=== PATIENT | female | born 1995 | race Caucasian/White ===

== ENCOUNTER 2020-05-17 13:18 | Observation (INO) | payer BC ==
[~2020-05-17 13:18] MED LIST: Iopamidol 370 76% 100 ML VIAL ONE; Iopamidol 370 76% 50 ML VIAL FS ONE
[2020-05-17] MEDS ORDERED: Ondansetron PF 4 MG/2 ML Vial ONE (13:54)
[2020-05-17] MEDS ORDERED: Morphine 4 MG/ML VIAL ONE (13:54)
[2020-05-17 14:02] LABS: #Eosinphils 0.1 thou/uL (0.0-0.7); #Lymphocytes 1.1 thou/uL (1.20-3.40); #Monocytes 0.3 thou/uL (0.11-0.59); #Neutrophils 6.5 thou/uL (1.40-6.50); %Basophils 0.1 % (0.0-1.0); %Eosinophils 1.4 % (0.0-10.0); %Lymphocytes 13.8 % (21.0-51.0); %Monocytes 3.6 % (0.0-10.0); %Neutrophils 81.1 % (42.0-75.0); Hemoglobin 15.5 g/dL (12.0-16.0); Mean Corpuscular HGB CONC 34.4 g/dL (32.0-36.0); Mean Corpuscular Hemoglobin 30.9 pg (27.0-31.0); Mean Corpuscular Volume 89.8 fL (78.0-98.0); Mean Platelet Volume 7.7 fL (7.4-10.4); Platelet Count 222 thou/uL (130-400); RBC Distribution Width 11.4 % (11.5-14.5); Red Blood Cell (RBC) Count 5.03 mill/uL (4.20-5.40)
[2020-05-17 14:11] LABS: BHCG - Serum Negative (NEGATIVE); Pregs Control Background? CLEAR/WHITE (CLR/WHITE); Pregs Control Bar Appear? YES (CONTROL BAR)
[2020-05-17 14:21] LABS: ALT (SGPT) 11 U/L (8-55); AST (SGOT) 19 U/L (5-34); Albumin 4.3 g/dL (3.5-5.0); Alkaline Phosphatase 56 U/L (40-110); Anion Gap 14 mmol/L (10-20); BUN (Urea Nitrogen) 12 mg/dL (7.0-18.7); Bilirubin, Total 0.7 mg/dL (0.2-1.2); Calc. Creatinine Clearance 0 mL/min (70-130); Calcium 9.4 mg/dL (7.8-10.44); Carbon Dioxide 26 mmol/L (22-29); Chloride 103 mmol/L (98-107); Estimated GFR-MDRD 89; Globulin 3.5 g/dL (2.4-3.5); Glucose 98 mg/dL (70-105); Lipase 27 U/L (8-78); Potassium 3.8 mmol/L (3.5-5.1); Protein, Total 7.8 g/dL (6.0-8.3); Sodium 139 mmol/L (136-145)
[2020-05-17 16:06] LABS: Bilirubin Negative (Negative); Blood, Urine Negative (Negative); Clarity Clear (Clear); Glucose, Urine (Dipstick) Normal (Negative); Ketone, Urine Negative (Negative); Leukocyte Negative Leu/uL (Negative); Nitrite Negative (Negative); Protein, Urine (Dipstick) Negative (Neg-Trace); Urobilinogen Normal mg/dL (Less than 2); pH, Urine 7.5 (5.0-9.0)
--- NOTE | 2020-05-17 16:26 | CT ---
CT ABDOMEN AND PELVIS WITH IV CONTRAST 05/17/2020 CLINICAL INFORMATION: Right lower quadrant abdominal pain for last 2 days. Pain now radiating to left lower quadrant. Nause a and loose stools COMPARISON: None. Technique: Multiple contiguous axial CT images are obtained through the abdomen and pelvis with IV contrast. Cor onal reformatted images are provided. FINDINGS: Lower Chest: Lung bases are clear. Vessels: Abdominal aorta is normal in caliber. Abdomen: Portal vein:Patent Gallbladder: Within normal limits for CT imaging. Liver: within normal limits. Spleen: within normal limits. Pancreas: within normal limits. Adrenals: within normal limits. Kidneys: Prominence of each renal pelvis likely related to distention of the urinary bladder. Kidneys otherwise demonstrate a normal CT appearance. Bowel: Normal caliber. Appendix: Dilated with thickened mullins. Diameter of the appendix is 1.3 cm. There is adjacent periapp endiceal inflammatory changes with cecal apical thickening. There does appear to be mild thickening of the mullins of the terminal ileum which is likely reactive in origin. Peritoneum: Small amount of ascites is present in the pelvis. Mesentery and Retroperitoneum: No enlarged mesenteric or retroperitoneal lymph nodes. Abdominal Wall: within normal limits. Pelvis: Reproductive Organs: No pelvic masses. Bladder: Distended but otherwise normal in appearance. Bones: Mild left convex curvature of thoracolumbar spine. Suspicious lytic or sclerotic osseous lesio ns are seen IMPRESSION: 1. Acute appendicitis. 2. Above findings discussed with Diana nurse taking care of the patient in the emergency department on 05/17/2020 at 1621 hours.
[2020-05-17] MEDS ORDERED: Piperacillin/Tazobactam 4.5 GM VIAL ONE (17:12)
--- NOTE | 2020-05-18 00:57 | HP ---
CHIEF COMPLAINT: Right lower quadrant abdominal pain. HISTORY OF PRESENT ILLNESS: A 24-year-old female with about an 18 to 20-hour history of lower abdominal pain, now more right lower quadrant over the past 6 hours, associated with nausea, no vomiting, last meal breakfast. PAST MEDICAL HISTORY: Otherwise healthy. PAST SURGICAL HISTORY: None. MEDICATIONS: Oral contraceptives. ALLERGIES: NO KNOWN DRUG ALLERGIES. SOCIAL HISTORY: She is single. She is a grad student. No tobacco or alcohol. FAMILY HISTORY: Hypertension and hyperlipidemia. PHYSICAL EXAMINATION: VITAL SIGNS: She is afebrile. Pulse 110 and blood pressure is 110/80. GENERAL: Well-developed, well-nourished female, in no apparent distress. HEENT: Unremarkable. LUNGS: Clear. HEART: Regular rate and rhythm. ABDOMEN: Soft and nondistended. She is very tender in the right lower quadrant to percussion. No palpable mass. EXTREMITIES: Unremarkable. LABORATORY DATA: White count 8, hemoglobin and hematocrit of 15 and 45, platelet count 222. Electrolytes are fine. HCG negative. CT scan shows dilated appendix consistent with early acute appendicitis. No rupture. ASSESSMENT: Acute appendicitis. PLAN: Check a COVID test, treating with IV antibiotics, lap mara in the morning. Job ID: [id number]
[2020-05-18] MEDS ORDERED: Fentanyl 100 MCG/2 ML VIAL SLOW IVP PRN (01:00)
[2020-05-18] MEDS ORDERED: Ondansetron PF 4 MG/2 ML Vial IVP PRN ×2 (01:00→11:58)
[2020-05-18] MEDS ORDERED: Ondansetron ODT 4 MG TAB SL PRN (01:00)
[2020-05-18] MEDS ORDERED: Sodium Chloride 0.9% 1,000 ML IV SCH (01:00)
[2020-05-18] MEDS ORDERED: Piperacillin/Tazobactam 3.375 GM in Sodium Chloride 0.9% 100 ML IVPB SCH ×2 (02:00→12:00)
[2020-05-18 08:41] LABS: SARS-CoV-2 MS2 Positive; SARS-CoV-2 N Gene Negative; SARS-CoV-2 S Gene Negative; SARS-CoV-2 by NAA Not Detected (NotDetected); SARS-CoV-2 orf1ab Negative
[2020-05-18] MEDS ORDERED: FLU VACC QS2020-21(6MOS UP)/PF 60 MCG/0.5 ML SYRINGE IM ONE (09:00)
[2020-05-18] MEDS ORDERED: Promethazine HCl 25 MG/ML VIAL IM PRN ×3 (10:27→11:58)
[2020-05-18] MEDS ORDERED: Ondansetron HCl/PF 4 MG/2 ML Vial IVP PRN ×2 (10:27→11:29)
[2020-05-18] MEDS ORDERED: Meperidine HCl/PF 25 MG/ML VIAL SLOW IVP PRN ×3 (10:27→11:29)
[2020-05-18] MEDS ORDERED: Promethazine HCl 25 MG/ML VIAL SLOW IVP PRN ×2 (10:27→11:29)
[2020-05-18] MEDS ORDERED: Fentanyl 100 MCG/2 ML VIAL ONE (10:43)
[2020-05-18] MEDS ORDERED: Midazolam HCl 2 mg/2 ml Vial ONE ×2 (10:43→10:51)
[2020-05-18] MEDS ORDERED: Lidocaine 2% Jelly 5 ML TUBE ONE (10:44)
[2020-05-18] MEDS ORDERED: HYDROmorphone 0.5 MG/0.5 ML SYRINGE ONE (10:44)
[2020-05-18] MEDS ORDERED: Bupivacaine 0.25% HCL 30 ML VIAL ONE (10:46)
[2020-05-18] MEDS ORDERED: Lidocaine 1% w/Epinephrine 1:100K 20 ML VIAL ONE (10:46)
[2020-05-18] MEDS ORDERED: Ketorolac Tromethamine 30 MG/ML VIAL IVP PRN (11:29)
[2020-05-18] MEDS ORDERED: HYDROmorphone 2 MG/ML VIAL SLOW IVP PRN (11:29)
[2020-05-18] MEDS ORDERED: HYDROcodone/Acetaminophen 10/325 mg Tablet PO PRN ×2 (11:58)
[2020-05-18] MEDS ORDERED: Dextrose 50% Abboject 50 ML SYRINGE SLOW IVP PRN (11:58)
[2020-05-18] MEDS ORDERED: Morphine 2 MG/ML VIAL SLOW IVP PRN (11:58)
[2020-05-18] MEDS ORDERED: Morphine 4 MG/ML VIAL SLOW IVP PRN (11:58)
[2020-05-18] MEDS ORDERED: hydrALAZINE 20 MG/ML VIAL SLOW IVP PRN (11:58)
[2020-05-18] MEDS ORDERED: Dextrose 5% in Water 1,000 ML IV PRN (11:58)
[2020-05-18] MEDS ORDERED: PROPOFOL 200 MG/20 ML VIAL ONE (12:38)
[2020-05-18] MEDS ORDERED: Dexamethasone 20 MG/5 ML VIAL ONE (12:38)
[2020-05-18] MEDS ORDERED: Rocuronium Bromide 10 MG/ML (10ML VIAL) ONE (12:38)
[2020-05-18] MEDS ORDERED: Ondansetron PF 4 MG/2 ML Vial ONE (12:38)
[2020-05-18] MEDS ORDERED: Glycopyrrolate 0.2 MG/ML 5 ML SYRINGE ONE (12:38)
[2020-05-18] MEDS ORDERED: Succinylcholine 200 MG/10 ml SYRINGE FS ONE (12:38)
[2020-05-18] MEDS ORDERED: Lidocaine 1% PF 5 ML VIAL ONE (12:38)
[2020-05-18] MEDS: Ketorolac Tromethamine 30 MG/ML VIAL IVP SCH ×2 (14:23→18:34)
[2020-05-18] MEDS: D5 1/2 NS w/20 mEq KCL 1,000 ML IV SCH (14:23)
--- NOTE | 2020-05-18 17:58 | OP ---
DATE OF PROCEDURE: 05/18/2020 PREOPERATIVE DIAGNOSIS: Acute appendicitis. PROCEDURE PERFORMED: Laparoscopic appendectomy. INDICATIONS: This is a 24-year-old female with 36-hour history of right lower quadrant abdominal pain. CT showed appendicitis. FINDINGS: Acute gangrenous appendicitis with local perforation. DESCRIPTION OF PROCEDURE: After informed consent was obtained, the patient was taken to the operating room, given general endotracheal anesthesia, placed in supine position. Abdomen was prepped and draped in the usual fashion. Local anesthesia was infiltrated subcutaneously and deep. A subumbilical incision was performed. Subcu divided sharply. The fascia grasped with 2 stay sutures of 0 Vicryl, placed through each side of midline. Midline incised. Digital palpation revealed no local adhesions. A blunt 12-mm trocar inserted. Pneumoperitoneum was created to a pressure of 15 mmHg. A 0-degree laparoscope inserted under direct vision. Two 5-mm ports were placed, one suprapubic and one right lateral abdomen. There was some purulent appearing fluid in the pelvis. Trap was placed on suction and this was aspirated for culture. The appendix was found. The mesoappendix divided with LigaSure. The base of appendix was divided with a linear 45-mm white load stapler. The appendix was placed in an Endosac and removed from the abdomen in an Endosac. Hemostasis was assured. The pelvis and abdomen were thoroughly irrigated and irrigation fluid removed. Trocars and retractors removed. The fascia closed with interrupted 0 Vicryl suture. Skin closed with interrupted 4-0 Rapide. Dermabond applied. The patient tolerated the procedure well, transferred to Recovery in good condition. Sponge and needle count verified correct x2. Job ID: [id number]
[2020-05-18] MEDS: Piperacillin/Tazobactam 3.375 GM in Sodium Chloride 0.9% 100 ML IVPB SCH (21:13)
[2020-05-18] MEDS: Famotidine 20 MG TAB PO SCH (21:13)
[2020-05-18] MEDS: Famotidine/PF 20 mg/2ml Vial SLOW IVP SCH (22:41)
[2020-05-19] MEDS: Ketorolac Tromethamine 30 MG/ML VIAL IVP SCH ×2 (00:22→06:12)
[2020-05-19] MEDS: D5 1/2 NS w/20 mEq KCL 1,000 ML IV SCH ×2 (00:24→06:14)
[2020-05-19] MEDS: Piperacillin/Tazobactam 3.375 GM in Sodium Chloride 0.9% 100 ML IVPB SCH ×2 (03:03→08:53)
[2020-05-19 07:27] LABS: #Lymphocytes 1.3 thou/uL (1.20-3.40); #Monocytes 0.6 thou/uL (0.11-0.59); #Neutrophils 8.8 thou/uL (1.40-6.50); %Basophils 0.2 % (0.0-1.0); %Lymphocytes 11.9 % (21.0-51.0); %Monocytes 5.6 % (0.0-10.0); %Neutrophils 82.3 % (42.0-75.0); Hemoglobin 12.9 g/dL (12.0-16.0); Mean Corpuscular HGB CONC 33.8 g/dL (32.0-36.0); Mean Corpuscular Hemoglobin 31.4 pg (27.0-31.0); Mean Platelet Volume 8.3 fL (7.4-10.4); Platelet Count 174 thou/uL (130-400); RBC Distribution Width 11.4 % (11.5-14.5); Red Blood Cell (RBC) Count 4.11 mill/uL (4.20-5.40); White Blood Cell (WBC) Count 10.7 thou/uL (4.8-10.8)
[2020-05-19 07:47] LABS: Anion Gap 12 mmol/L (10-20); BUN (Urea Nitrogen) 6 mg/dL (7.0-18.7); Calc. Creatinine Clearance 102 mL/min (70-130); Calcium 8.7 mg/dL (7.8-10.44); Carbon Dioxide 24 mmol/L (22-29); Chloride 109 mmol/L (98-107); Estimated GFR-MDRD 84; Glucose 147 mg/dL (70-105); Potassium 4.2 mmol/L (3.5-5.1); Sodium 141 mmol/L (136-145)
[2020-05-19 08:06] VITALS: BP 109/72; TEMP 98
[2020-05-19] MEDS: Famotidine 20 MG TAB PO SCH (08:53)
[2020-05-19] MEDS ORDERED: Enoxaparin Sodium 40 MG/0.4 ML SYRINGE SC SCH (09:00)
[2020-05-19] MEDS: Famotidine/PF 20 mg/2ml Vial SLOW IVP SCH (09:41)
--- NOTE | 2020-05-20 07:40 | DIS ---
DATE OF ADMISSION: 05/17/2020 DATE OF DISCHARGE: 05/19/2020 DISCHARGE DIAGNOSIS: Acute appendicitis with local perforation. PROCEDURE DURING ADMISSION: Laparoscopic appendectomy. HOSPITAL COURSE: The patient was admitted, given IV antibiotics, taken to the operating room, where she underwent laparoscopic appendectomy. She was found to have some purulent fluid around the appendix. This was sent for culture. It grew out E coli. She is doing really well now, is tolerating diet. Her pain is controlled on p.o. medications. She is afebrile. She is discharged home on hydrocodone, Zofran, and doxycycline. She will follow up with me in 2 weeks. Job ID: [id number]
[2020-05-21 07:54] LABS: GC by PCR Inconclusive (NotDetected)
[2020-05-21 07:55] LABS: Chlamydia by PCR Inconclusive (NotDetected)
== END 2020-05-19 10:45 | disposition home or self-care (01) ==
LOC: ERS 13:18 → ERHOLD 17:52 → 3SW 05-18 00:11 → 3SE 05-18 13:58
PROVIDERS: ADMIT Surgery; ATTEND Surgery
PROC: 0DTJ4ZZ Resection of Appendix, Percutaneous Endoscopic Approach (ICD-10-PCS; principal; 2020-05-18)
DX: K35.32 Acute appendicitis with perforation, localized peritonitis, and gangrene, without abscess (principal); Z20.828 Contact with and (suspected) exposure to other viral communicable diseases
CPT/HCPCS: 36415; 74177; 80048; 80053; 81003; 83690; 84703; 85025; 87070; 87077; 87186; 87205; 87480; 87491; 87510; 87591; 87635; 87660; 88304; 96365; 96366; 96372; 96375; 96376; G0378; J1100; J1170; J1650; J1885; J2250; J2270; J2405; J2543; J2704; J3010; J3480; J3490; Q9967; S0020; U0003